=== PATIENT | male | born 1965 | race Two or more races ===

== ENCOUNTER 2019-12-31 10:51 | Outpatient (CLI) | payer OTHER | END 2019-12-31 10:54 | disposition home or self-care (01) | LOC: RAD 10:51 | DX: M25.562 Pain in left knee (principal) ==

== ENCOUNTER 2020-01-08 06:45 | Outpatient (CLI) | payer OTHER ==
[2020-01-09] MEDS ORDERED: COZAAR50 MG PO (12:36)
== END 2020-01-08 07:06 | disposition home or self-care (01) ==
LOC: LAB 06:45
DX: D64.89 Other specified anemias (principal); E88.89 Other specified metabolic disorders; D68.8 Other specified coagulation defects; N39.0 Urinary tract infection, site not specified; Z22.322 Carrier or suspected carrier of Methicillin resistant Staphylococcus aureus; Z76.89 Persons encountering health services in other specified circumstances; I10 Essential (primary) hypertension; I49.8 Other specified cardiac arrhythmias

== ENCOUNTER 2020-01-16 06:40 | Outpatient (CLI) | payer OTHER ==
[~2020-01-16 06:40] MED LIST: COZAAR50 MG PO
== END 2020-01-16 06:49 | disposition home or self-care (01) ==
LOC: LAB 06:40
DX: D68.8 Other specified coagulation defects (principal)

== ENCOUNTER 2020-04-11 06:10 | Day surgery (SDC) | payer OTHER | END 2020-04-11 13:45 | disposition home or self-care (01) | LOC: CIR.AMB 06:10 → ADM 07:15 → CIR.AMB 13:45 | PROVIDERS: ATTEND Orthopaedic Surgery | DX: M23.322 Other meniscus derangements, posterior horn of medial meniscus, left knee (principal); M12.262 Villonodular synovitis (pigmented), left knee ==